=== PATIENT | male | born 1980 | race Caucasian/White ===

== ENCOUNTER 2020-07-05 14:05 | Outpatient (CLI) | payer OTHER, SELFPAY ==
[2020-07-05 14:24] LABS: Basophils Absolute Auto 0.06 K/mm3 (0.00-0.10); Basophils Percent Auto 0.5 % (0.0-1.0); Eosinophils Absolute Auto 0.32 K/mm3 (0.02-0.50); Eosinophils Percent Auto 2.7 % (1.0-6.0); Hematocrit 42.2 % (40.0-54.0); Hemoglobin 13.9 g/dL (14.0-18.0); Immature Granulocyte Absolute 0.04 K/mm3 (0.00-0.00); Immature Granulocyte Percent A 0.3 % (0.0-0.0); Lymphocytes Absolute Auto 2.83 K/mm3 (1.10-4.50); Lymphocytes Percent Auto 23.8 % (18.0-42.0); Mean Corpuscular HGB Conc 32.9 g/dL (32.0-36.0); Mean Corpuscular Hemoglobin 30.4 pg (27.0-31.0); Mean Corpuscular Volume 92.3 fL (78.0-102.0); Mean Platelet Volume 9.8 fl (8.7-11.0); Monocytes Absolute Auto 0.93 K/mm3 (0.10-0.90); Monocytes Percent Auto 7.8 % (2.0-11.0); Neutrophils Absolute Auto 7.7 K/mm3 (1.7-7.2); Neutrophils Percent Auto 64.9 % (50.0-70.0); Platelet Count Result 312 K/mm3 (150-420); Red Blood Count 4.57 M/mm3 (4.70-6.10); Red Cell Distribution Width 12.5 % (11.6-14.4); White Blood Count 11.9 K/mm3 (4.8-10.8)
[2020-07-05 15:28] LABS: Alanine Aminotransferase 50 U/L (16-63); Albumin Level 4.1 g/dL (3.4-5.0); Alkaline Phosphatase 73 U/L (46-116); Anion Gap 9 mmol/L (8-16); Aspartate Amino Transferase 33 U/L (15-37); Bilirubin,Total 0.3 mg/dL (0.00-1.00); Blood Urea Nitrogen 27 mg/dL (7-18); Calcium 8.9 mg/dL (8.5-10.1); Carbon Dioxide 28 mmol/L (21-32); Chloride 103 mmol/L (98-108); Cholesterol 165 mg/dL (0-200); Estimated Glomerular Filt Rate 60; Glucose 100 mg/dL (70-99); HDL Direct 40 mg/dL (40-60); LDL Cholesterol Calculated 71 mg/dL (<130); Osmolality Calculated 295 mOsm/kg (285-295); Potassium 4.6 mmol/L (3.5-5.1); Sodium 140 mmol/L (136-145); Triglycerides 268 mg/dL (0-150)
[2020-07-05 15:31] LABS: Free T4 Free Thyroxine Reflex 0.97 ng/dL (0.76-1.46); Thyroid Stimulating Hormone Reflex 5.42 u/IU/mL (0.36-3.74)
[2020-07-10 11:33] LABS: T3 Reverse 17 ng/dL (8-25)
[2020-07-12 12:40] LABS: Total Triiodothyronine (T3) 141.5 ng/dL (76-181)
[2020-07-13 13:15] LABS: T4 Thyroxine 8.4 mcg/dL (4.9-10.5)
== END 2020-07-05 14:06 | disposition home or self-care (01) ==
PROVIDERS: PCP Family Medicine; Visit Provider Family Medicine
DX: E66.9 Obesity, unspecified (principal); R03.0 Elevated blood-pressure reading, without diagnosis of hypertension; G47.30 Sleep apnea, unspecified; R51.9 Headache, unspecified
CPT/HCPCS: 36415; 80053; 80061; 84436; 84439; 84443; 84480; 84482; 85025

== ENCOUNTER 2022-08-14 13:59 | Outpatient (CLI) | payer OTHER, SELFPAY ==
[2022-08-14 14:15] LABS: Hematocrit 42.5 % (40.0-54.0); Hemoglobin 14.1 g/dL (14.0-18.0); Mean Corpuscular HGB Conc 33.2 g/dL (32.0-36.0); Mean Corpuscular Hemoglobin 30.5 pg (27.0-31.0); Mean Platelet Volume 9.7 fl (8.7-11.0); Platelet Count Result 312 K/mm3 (150-420); Red Blood Count 4.62 M/mm3 (4.70-6.10); Red Cell Distribution Width 12.5 % (11.6-14.4); White Blood Count 10.6 K/mm3 (4.8-10.8)
[2022-08-14 14:59] LABS: Alanine Aminotransferase 50 U/L (16-63); Alkaline Phosphatase 68 U/L (46-116); Anion Gap 8 mmol/L (8-16); Aspartate Amino Transferase 23 U/L (15-37); Bilirubin,Total 0.2 mg/dL (0.00-1.00); Blood Urea Nitrogen 23 mg/dL (7-18); Carbon Dioxide 28 mmol/L (21-32); Chloride 106 mmol/L (98-108); Estimated Glomerular Filt Rate > 60; Glucose 121 mg/dL (70-99); Osmolality Calculated 298 mOsm/kg (285-295); Potassium 4.7 mmol/L (3.5-5.1); Sodium 142 mmol/L (136-145); Total Protein 7.2 g/dL (6.4-8.2)
[2022-08-14 15:09] LABS: Thyroid Stimulating Hormone Reflex 12.19 u/IU/mL (0.36-3.74)
== END 2022-08-14 14:00 | disposition home or self-care (01) ==
LOC: CHSLAB 14:02
PROVIDERS: PCP Family Medicine; Visit Provider Family Medicine
DX: R03.0 Elevated blood-pressure reading, without diagnosis of hypertension (principal); E11.9 Type 2 diabetes mellitus without complications; R79.89 Other specified abnormal findings of blood chemistry
CPT/HCPCS: 36415; 80053; 84439; 84443; 85027

== ENCOUNTER 2022-09-25 20:10 | Outpatient (CLI) | payer OTHER, SELFPAY ==
--- NOTE | 2022-10-01 00:49 | WPDSLEEPSTUD ---
Sleep Study Date of Study: 09/25/22 Ordering Provider: Brian Jacobson DO Interpreting Physician: Lesley Mullins MD Sleep Study Type: Split Polysomnogram Height: 1.75 m Weight: 121.563 kg Body Mass Index: 39.5 Neck Circumference (inches): 19 [place]: 17 Reason for Sleep Study Waking up often at night, tired on waking, witnessed apneas and snoring Sleep History Darryn Crenshaw is a 41-year-old man with hypersomnolence. for several years he has had problems with stopping breathing at night. His witnesses apneas and heavy snoring. He wakes up frequently through the night. He is tired shortly after waking. He frequently awakens from sleep feeling short of breath. He occasionally awakens at night with heartburn, belching or coughing. His snoring is always extremely loud. He occasionally has trouble sleeping with a cold. He occasionally wakes up gasping for breath at night. He rarely sweats excessively at night. He occasionally notices his heart pounding or beating irregularly night. He occasionally falls asleep during the day, occasionally falls asleep involuntarily but never while driving. He does not have loss of muscle tone with strong emotion. He occasionally has daytime difficulties due to excessive sleepiness. He does not feel paralyzed on waking or falling asleep. He frequently has vivid dreamlike scenes on waking or falling asleep. He does not feel afraid to go to sleep. He does not have nightmares. He frequently remembers his dreams. He constantly has racing thoughts. He occasionally feels sad depressed or anxious. He occasionally has muscular tension. He occasionally notices parts of his body jerking. He occasionally kicks at night. He rarely has crawling or aching feelings in his legs. He rarely has any kind of leg pain at night. He does not have morning jaw pain. He occasionally grinds his teeth during sleep. He occasionally is bothered by pain during the day. He rarely is awakened by pain at night. He occasionally wakes up feeling stiff in the morning with sore achy muscles and pain in the neck and spine. He has headaches, fatigue and insomnia. He takes antacids regularly. 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 He typically will wake up 4 5 times going to sleep. On average he stays awake between 5 and 10 minutes when he wakes during the night, gets a drink and uses the bathroom, and then returns to bed. His wake time is variable depending on when he goes to sleep. He estimates getting anywhere between 5 and 9 hours of sleep. he takes naps. A short nap may be refreshing. He feels better in the afternoon compared to other times of day. He is usually drowsy for 3 hours after waking. Habits: Tobacco 1 ppd. Caffeine 4 servings a day. Alcohol, several on the weekends. No recreational substance. FOR[facility]LY [facility], [facility] Past Medical History Medical History (Updated 10/02/22 @ 17:53 by Lesley Mullins MD) Chronic headaches GERD (gastroesophageal reflux disease) Migraine headache Obesity (BMI 30-39.9) Right lateral epicondylitis Sleep apnea Thyroid disease Surgical History Surgical History (Updated 10/02/22 @ 17:53 by Lesley Mullins MD) History of eye surgery left eye Social History Social History (Updated 10/02/22 @ 17:54 by Lesley Mullins MD) Smoking packs per day: 1 Smoking cigarettes per day: 20.0 Smoking status: Current every day smoker Tobacco type: cigarettes Alcohol intake: current Alcohol use details: a couple of drinks on weekends Lack of Transportation: No Lack of Food: Never True Current Housing: I Have Housing Concerned About Future Housing: No Difficulty Paying Gas/Electric Bills: No Difficulty Paying for Meds: No Currently Unemployed: No Education: Trade/Vocational Certificate Difficulty w/ Childcare or Family Care: No Medicat
[2022-10-02 17:41] VITALS: BMI 39.5
== END 2022-09-26 06:15 | disposition home or self-care (01) ==
LOC: CHSCSM 20:21
PROVIDERS: PCP Family Medicine; Visit Provider Family Medicine
DX: G47.33 Obstructive sleep apnea (adult) (pediatric) (principal); Z68.39 Body mass index [BMI] 39.0-39.9, adult
CPT/HCPCS: 95811

== ENCOUNTER 2022-11-05 11:30 | Outpatient (CLI) | payer OTHER, SELFPAY ==
[2022-11-05 12:18] LABS: Thyroid Stimulating Hormone 1.64 uIU/mL (0.36-3.74)
== END 2022-11-05 11:31 | disposition home or self-care (01) ==
LOC: CHSLAB 11:31
PROVIDERS: PCP Family Medicine; Visit Provider Family Medicine
DX: E03.9 Hypothyroidism, unspecified (principal)
CPT/HCPCS: 36415; 84443

== ENCOUNTER 2023-02-07 10:11 | Outpatient (CLI) | payer OTHER, SELFPAY | END 2023-02-07 10:12 | disposition home or self-care (01) | LOC: CHSLAB 10:12 | PROVIDERS: PCP Family Medicine; Visit Provider Family Medicine | DX: E11.9 Type 2 diabetes mellitus without complications (principal) | CPT/HCPCS: 36415; 84443 ==

== ENCOUNTER 2024-07-29 16:08 | Outpatient (CLI) | payer OTHER, SELFPAY ==
[2024-07-29 16:22] LABS: Basophils Absolute Auto 0.07 K/mm3 (0.00-0.10); Basophils Percent Auto 0.7 % (0.0-1.0); Eosinophils Absolute Auto 0.54 K/mm3 (0.02-0.50); Eosinophils Percent Auto 5.2 % (1.0-6.0); Hemoglobin 14.4 g/dL (14.0-18.0); Immature Granulocyte Absolute 0.04 K/mm3 (0.00-0.00); Immature Granulocyte Percent A 0.4 % (0.0-0.0); Mean Corpuscular HGB Conc 34.3 g/dL (32-36); Mean Corpuscular Volume 90.5 fL (78.0-102.0); Mean Platelet Volume 9.5 fl (8.7-11.0); Monocytes Absolute Auto 1.08 K/mm3 (0.10-0.90); Monocytes Percent Auto 10.3 % (2.0-11.0); Neutrophils Absolute Auto 4.45 K/mm3 (1.70-7.20); Neutrophils Percent Auto 42.4 % (50.0-70.0); Platelet Count Result 312 K/mm3 (150-420); Red Blood Count 4.64 M/mm3 (4.70-6.10); Red Cell Distribution Width 12.7 % (11.6-14.4); White Blood Count 10.5 K/mm3 (4.8-10.8)
[2024-07-29 17:04] LABS: Alanine Aminotransferase 42 U/L (16-63); Albumin Level 4.2 g/dL (3.4-5.0); Alkaline Phosphatase 71 U/L (46-116); Anion Gap 9 mmol/L (4-12); Aspartate Amino Transferase 23 U/L (15-37); Bilirubin,Total 0.3 mg/dL (0.00-1.00); Blood Urea Nitrogen 23 mg/dL (7-18); Calcium 9.5 mg/dL (8.5-10.1); Carbon Dioxide 30 mmol/L (21-32); Chloride 101 mmol/L (98-108); Cholesterol 177 mg/dL (0-200); Estimated Glomerular Filt Rate > 60; Glucose 85 mg/dL (70-99); HDL Direct 46 mg/dL (40-60); LDL Cholesterol Calculated 82 mg/dL (<130); Osmolality Calculated 292 mOsm/kg (285-295); Potassium 4.3 mmol/L (3.5-5.1); Sodium 140 mmol/L (136-145); Total Protein 7.1 g/dL (6.4-8.2); Triglycerides 243 mg/dL (0-150)
[2024-07-29 17:33] LABS: Free T4 Free Thyroxine Reflex 0.85 ng/dL (0.76-1.46)
== END 2024-07-29 16:09 | disposition home or self-care (01) ==
PROVIDERS: PCP Family Medicine; Visit Provider Family Medicine
DX: E03.9 Hypothyroidism, unspecified (principal); R79.89 Other specified abnormal findings of blood chemistry
CPT/HCPCS: 36415; 80053; 80061; 84439; 84443; 85025